=== PATIENT | female | born 1995 | race Caucasian/White ===

== ENCOUNTER 2018-09-28 15:14 | Emergency (ER) | payer BC ==
[2018-09-28] MEDS: predniSONE 20 MG TAB PO (16:29)
[2018-09-28] MEDS: DIPHENHYDRAMINE 50 MG INJ IM (16:29)
== END 2018-09-28 17:05 | disposition home or self-care (01) ==
LOC: FTE 15:14
DX: L50.9 Urticaria, unspecified (principal)
CPT/HCPCS: 81025; 96372; 99284-25